=== PATIENT | female | born 1990 | race Two or more races ===

== ENCOUNTER 2019-09-14 18:50 | Inpatient (IN) | payer OTHER, MEDICAID ==
[~2019-09-14] VITALS: Ht 154.9 cm; Wt 55.8 kg
[2019-09-14] MEDS ORDERED: SODIUM CHLORIDE 0.9% 1,000 ML IV ONE (19:30)
[2019-09-14 20:35] LABS: BASOPHILS % (AUTO) 0.3 % (0.0-2.0); EOSINOPHILS % (AUTO) 0.8 % (1.0-6.0); HEMATOCRIT 39.6 % (36-46); HEMOGLOBIN 13.1 g/dL (12.0-16.0); LYMPHOCYTES # (AUTO) 1.7 K/uL (1.0-4.8); LYMPHOCYTES % (AUTO) 33.5 % (22.0-44.0); MEAN CORPUSCULAR HEMOGLOBIN 31.4 pg (26.0-34.0); MEAN CORPUSCULAR HGB CONC 33.2 G/dL (31.0-37.0); MEAN CORPUSCULAR VOLUME 95 fL (80-100); MONOCYTES # (AUTO) 0.2 K/uL (0.1-1.0); MONOCYTES % (AUTO) 3.9 % (2.0-9.0); NEUTROPHILS % (AUTO) 61.5 % (40.0-70.0); PLATELET COUNT (AUTO) 544 K/uL (150-450); RED BLOOD CELL COUNT(AUTO) 4.18 MIL/uL (4.00-5.20); RED CELL DISTRIBUTION WIDTH 16.9 % (11.5-14.5)
[2019-09-14 20:44] LABS: SALICYLATE 1.1 mg/dL (2.8-20.0)
[2019-09-14 21:11] LABS: ALANINE AMINOTRANSFERASE 120 U/L (12-78); ALBUMIN 3.8 g/dL (3.4-5.0); ALKALINE PHOSPHATASE 261 U/L (46-116); ANION GAP 15 mmol/L (8-16); ASPARTATE AMINOTRANSFERASE 258 U/L (15-37); BILIRUBIN,TOTAL 0.7 mg/dL (0.1-1.0); CALCIUM, TOTAL 8.9 mg/dL (8.8-10.5); CARBON DIOXIDE 23 mmol/L (22-29); CHLORIDE 103 mmol/L (98-107); CREATININE 0.68 mg/dL (0.60-1.30); GLOMERULAR FILTR. RATE CALC > 60 mL/min (>60); GLUCOSE,RANDOM 114 mg/dL (70-110); POTASSIUM 4.4 mmol/L (3.5-5.1); SODIUM SERUM 141 mmol/L (136-145); TOTAL PROTEIN, SERUM 8.5 g/dL (6.4-8.2); UREA NITROGEN, BLOOD 3 mg/dL (7-18)
[2019-09-14 21:45] LABS: ACETAMINOPHEN < 2 mcg/mL (10-30); HCG,QUANTITATIVE < 1 mIU/mL (0-6)
[2019-09-14 21:59] LABS: APPEARANCE,URINE CLEAR (CLEAR); BILIRUBIN,URINE NEGATIVE (NEGATIVE); GLUCOSE, URINE (UA) NEGATIVE (NEGATIVE); KETONES,URINE NEGATIVE (NEGATIVE); LEUKOCYTE ESTERASE ,URINE NEGATIVE (NEGATIVE); NITRATE,URINE NEGATIVE (NEGATIVE); OCCULT BLOOD,URINE NEGATIVE (NEGATIVE); PH,URINE 6.5 (5.0-8.0); PROTEIN,URINE NEGATIVE (NEGATIVE); UROBILINOGEN,URINE 0.2 mg/dL (<=1.0)
[2019-09-14] MEDS: LORazepam 2 MG TABLET PO PRN (22:57)
[2019-09-14] MEDS: ZOLPIDEM TARTRATE 10 MG TABLET PO PRN (22:58)
[2019-09-15] VITALS (11 sets, daily range): BP systolic 115–171; BP diastolic 62–84
[2019-09-15] MEDS: LORazepam 2 MG TABLET PO PRN ×2 (01:35→03:53)
[2019-09-15] MEDS: ZOLPIDEM TARTRATE 10 MG TABLET PO PRN ×2 (03:08→22:30)
[2019-09-15] MEDS ORDERED: MAG HYDROX/AL HYDROX/SIMETH ES 30 ML SUSPENSION UDCUP PO PRN (06:45)
[2019-09-15] MEDS ORDERED: LOPERAMIDE HCL 2 MG CAPSULE PO PRN (06:45)
[2019-09-15] MEDS ORDERED: ACETAMINOPHEN 325 MG TABLET PO PRN (06:45)
[2019-09-15] MEDS ORDERED: PETROLATUM,WHITE 28 GM JELLY TP PRN (06:45)
[2019-09-15] MEDS ORDERED: ONDANSETRON HCL 4 MG TABLET PO PRN (06:45)
[2019-09-15] MEDS ORDERED: ALBUTEROL SULFATE HFA 90 MCG/PUFF 8 GM INHALER IH PRN (06:45)
[2019-09-15] MEDS ORDERED: CloNIDine HCL 0.1 MG TABLET PO PRN (06:45)
[2019-09-15] MEDS ORDERED: IBUPROFEN 600 MG TABLET PO PRN (06:45)
[2019-09-15] MEDS ORDERED: BENZOCAINE/MENTHOL LOZENGE MM PRN (06:45)
[2019-09-15] MEDS ORDERED: OMEPRAZOLE 20 MG CAPSULE PO PRN (06:45)
[2019-09-15] MEDS ORDERED: DOCUSATE SODIUM 100 MG CAPSULE PO PRN (06:45)
[2019-09-15] MEDS ORDERED: MAGNESIUM HYDROXIDE SUSPENSION 30 ML UDCUP PO PRN (06:45)
[2019-09-15] MEDS ORDERED: BACITRACIN 28.4 GM OINTMENT TP PRN (06:45)
[2019-09-15 07:22] LABS: CHOL/HDL RATIO 6.7 (3.9-5.7); CHOLESTEROL 193 mg/dL (131-200); HDL CHOLESTEROL 29 mg/dL (40-60); TRIGLYCERIDES 412 mg/dL (15-150)
[2019-09-15] MEDS: LORazepam 2 MG TABLET PO SCH ×4 (09:04→21:02)
[2019-09-15] MEDS: ATENOLOL 50 MG TABLET PO SCH (09:05)
[2019-09-15] MEDS: OLANZapine 5 MG RAPDIS TABLET PO PRN (15:39)
[2019-09-16 01:15] VITALS: BP 102/69
[2019-09-16 01:28] VITALS: BP 102/69
[2019-09-16] MEDS: LORazepam 2 MG TABLET PO PRN ×2 (01:31→18:54)
[2019-09-16 05:15] VITALS: BP 101/66
[2019-09-16 08:06] LABS: THYROID STIMULATING HORMONE 1.7 uIU/mL (0.36-3.74)
[2019-09-16] MEDS: OMEGA-3/DHA/EPA/FISH OIL 1,000 MG CAPSULE PO SCH (08:40)
[2019-09-16] MEDS: ATENOLOL 50 MG TABLET PO SCH (08:41)
[2019-09-16] MEDS: LORazepam 2 MG TABLET PO SCH ×4 (08:41→21:20)
[2019-09-16 09:05] VITALS: BP 105/68
[2019-09-16 09:13] VITALS: BP 105/68
[2019-09-16 16:30] VITALS: BP 109/72
[2019-09-16] MEDS: ZOLPIDEM TARTRATE 10 MG TABLET PO PRN (21:20)
[2019-09-17 06:29] VITALS: BP 119/67
[2019-09-17 06:33] VITALS: BP 119/67
[2019-09-17] MEDS ORDERED: LORazepam 1 MG TABLET PO PRN (07:00)
[2019-09-17] MEDS: OMEGA-3/DHA/EPA/FISH OIL 1,000 MG CAPSULE PO SCH (08:02)
[2019-09-17] MEDS: LORazepam 1 MG TABLET PO SCH ×3 (08:02→16:34)
[2019-09-17] MEDS: ATENOLOL 50 MG TABLET PO SCH (08:03)
[2019-09-17 10:44] VITALS: BP 129/81
[2019-09-17 12:59] VITALS: BP 130/86
[2019-09-17] MEDS: OLANZapine 5 MG RAPDIS TABLET PO PRN (15:07)
[2019-09-17 16:00] VITALS: BP 107/73
[2019-09-18 01:18] VITALS: BP 128/78
[2019-09-18 05:11] VITALS: BP 128/78
[2019-09-18] MEDS ORDERED: LORazepam 1 MG TABLET PO PRN (07:00)
[2019-09-18 08:44] VITALS: BP 104/69
[2019-09-18 08:51] VITALS: BP 104/69
[2019-09-18] MEDS: OMEGA-3/DHA/EPA/FISH OIL 1,000 MG CAPSULE PO SCH (09:00)
[2019-09-18] MEDS: ATENOLOL 50 MG TABLET PO SCH (09:00)
[2019-09-18] MEDS ORDERED: ATEN-72 PO (09:47)
[2019-09-18] MEDS ORDERED: FISH1 PO (09:47)
== END 2019-09-18 14:30 | disposition home or self-care (01) | DRG 881 ==
LOC: EMS 18:50 → 3EI 20:29
PROVIDERS: ADMIT Psychiatry & Neurology Psychiatry; ATTEND Psychiatry & Neurology Psychiatry
DX: F32.9 Major depressive disorder, single episode, unspecified (principal); R45.851 Suicidal ideations; F43.10 Post-traumatic stress disorder, unspecified; F10.129 Alcohol abuse with intoxication, unspecified; K59.00 Constipation, unspecified; K70.10 Alcoholic hepatitis without ascites; E78.5 Hyperlipidemia, unspecified; F22 Delusional disorders; Y90.8 Blood alcohol level of 240 mg/100 ml or more; Z59.0 Homelessness
CPT/HCPCS: 80074; 84443; G0480; G0481; J7030